=== PATIENT | male | born 1995 | race African-American/Black ===

== ENCOUNTER 2023-03-08 06:32 | Emergency (ER) | payer BC ==
[~2023-03-08] VITALS: Ht 182.9 cm; Wt 113.5 kg
[2023-03-08 07:35] VITALS: BP 154/93; PULSE 85; RESP 18; TEMP 97.6; O2SAT 99
[2023-03-08] MEDS ORDERED: KETOROLAC TROMETH 60MG/2ML VIAL IM ONE (08:00)
[2023-03-08] MEDS ORDERED: IBUP-1456 PO (08:23)
== END 2023-03-08 08:34 | disposition home or self-care (01) ==
LOC: ER 06:32
DX: G44.209 Tension-type headache, unspecified, not intractable (principal)
CPT/HCPCS: 70450; 96372; 99285; J1885

== ENCOUNTER 2023-03-11 20:32 | Emergency (ER) | payer BC ==
[~2023-03-11] VITALS: Ht 182.9 cm; Wt 116.9 kg
[~2023-03-11 20:32] MED LIST: IBUP-1456 PO
[2023-03-11 21:48] LABS: Basophils # (auto) 0.1 10 ^3/uL (0-0.2); Basophils % (auto) 0.6 % (0.0-2.0); Eosinophils # (auto) 0.1 10 ^3/uL (0-0.8); Eosinophils % (auto) 0.7 % (0.0-7.0); Hematocrit 48.5 % (41.0-53.0); Hemoglobin 16.1 g/dL (13.5-17.5); Lymphocytes % (auto) 28.5 % (10.0-50.0); Mean Corpuscular Hgb Conc. 33.3 g/dL (32.0-36.0); Mean Corpuscular Volume 81.1 fL (80.0-100.0); Monocytes # (auto) 0.9 10 ^3/uL (0-1.3); Monocytes % (auto) 8.4 % (0.0-12.0); Neutrophils # (auto) 6.5 10 ^3/uL (1.6-8.6); Neutrophils % (auto) 61.8 % (37.0-80.0); Red Blood Cells 5.98 10^6/uL (4.5-5.90); White Blood Cell 10.5 10^3/uL (4.4-10.8)
[2023-03-11 21:52] LABS: Chloride 101 mmol/L (98-107); Potassium 3.8 mmol/L (3.5-5.1); Sodium 137 mmol/L (136-145)
[2023-03-11 21:53] LABS: Anion Gap 7 (5-15); Calcium 9.6 mg/dL (8.7-10.4); Carbon Dioxide 29 mmol/L (20-30)
[2023-03-11 21:57] LABS: Urine Bacteria NONE SEEN /hpf (None Seen); Urine Blood Negative /uL (Negative); Urine Clarity Clear (Clear); Urine Color Colorless (Yellow); Urine Protein, UAD Negative (Negative); Urine Specific Gravity 1.007 (1.001-1.035); Urine Urobilinogen Normal (Negative); Urine WBC 1 /hpf (0 - 3)
[2023-03-11 21:58] LABS: BUN/Creatinine Ratio 6.1 (10.0-20.0); Blood Urea Nitrogen 6 mg/dL (9-23); Glucose 271 mg/dL (74-106); Lipase 44 U/L (12-53)
[2023-03-12] MEDS ORDERED: CEPH250C PO (00:52)
[2023-03-12 01:05] VITALS: BP 149/87; PULSE 84; RESP 16; TEMP 98.2; O2SAT 96
== END 2023-03-12 01:02 | disposition home or self-care (01) ==
LOC: ER 20:32
DX: N30.90 Cystitis, unspecified without hematuria (principal); E11.9 Type 2 diabetes mellitus without complications; Z79.899 Other long term (current) drug therapy
CPT/HCPCS: 36415; 74176; 80048; 81001; 83690; 85025